=== PATIENT | female | born 1990 | race African-American/Black ===

== ENCOUNTER 2016-06-03 13:49 | Emergency (ER) | payer SELFPAY ==
[~2016-06-03] VITALS: Ht 152.4 cm; Wt 63.5 kg
[2016-06-03 13:50] VITALS: BP 143/90
--- NOTE | 2016-06-03 14:14 | PHYS DOC ---
Past Medical History Past Medical History: Asthma, Migraines Past Surgical History: Other Additional Past Surgical Histo: X 2 Alcohol Use: None Drug Use: None Adult General Chief Complaint Chief Complaint: FLU SYMPTOM [facility] HPI Patient is a 25 year old female presents the emergency room with the same time as her aunt with complaint of fever, body aches and "flulike symptoms" that began yesterday. Her aunt is here to the same time being seen as well. She denies any known exposure to influenza. She denies any history of chronic medical problems. She denies antibiotic use, hospitalization or foreign travel past 90 days. Review of Systems Review of Systems Constitutional: Denies fever or chills [] Eyes: Denies change in visual acuity, redness, or eye pain [] HENT: Denies nasal congestion or sore throat [] Respiratory: Denies cough or shortness of breath [] Cardiovascular: No additional information not addressed in HPI [] GI: Denies abdominal pain, nausea, vomiting, bloody stools or diarrhea [] : Denies dysuria or hematuria [] Musculoskeletal: Denies back pain or joint pain [] Integument: Denies rash or skin lesions [] Neurologic: Denies headache, focal weakness or sensory changes [] Endocrine: Denies polyuria or polydipsia [] Allergies Allergies Allergies Coded Allergies Type Severity Reaction Last Updated Verified No Known Drug Allergies 06/03/16 No Physical Exam Physical Exam Constitutional: Well developed, well nourished, no acute distress, non-toxic appearance. Patient is afebrile. HENT: Normocephalic, atraumatic, bilateral external ears normal, oropharynx moist, no oral exudates, scant clear rhinorrhea. Eyes: PERRLA, EOMI, conjunctiva normal, no discharge. [] Neck: Normal range of motion, no tenderness, supple, no stridor. There is no meningismus. There is bilateral anterior posterior cervical lymphadenopathy. Cardiovascular:Heart rate regular rhythm, no murmur [] Lungs & Thorax: There is no respiratory distress respiratory fatigue. Lungs are clear to auscultation bilaterally. Abdomen: Bowel sounds normal, soft, no tenderness, no masses, no pulsatile masses. [] Skin: Warm, dry, no erythema, no rash. [] Back: No tenderness, no CVA tenderness. [] Extremities: No tenderness, no cyanosis, no clubbing, ROM intact, no edema. [] Neurologic: Alert and oriented X 3, normal motor function, normal sensory function, no focal deficits noted. [] Psychologic: Affect normal, judgement normal, mood normal. [] Current Patient Data Vital Signs Vital Signs Date Time Temp Pulse Resp B/P Pulse Ox O2 Delivery O2 Flow Rate FiO2 06/03/16 13:50 98.1 77 18 98 Room Air 98.1 Lab Values Laboratory Tests Test 06/03/16 13:55 Influenza Type A Antigen Negative (NEGATIVE) Influenza Type B Antigen Negative (NEGATIVE) EKG EKG [] Radiology/Procedures Radiology/Procedures [] Course & Med Decision Making Course & Med Decision Making Pertinent Labs and Imaging studies reviewed. (See chart for details) [] Dragon Disclaimer Dragon Disclaimer This electronic medical record was generated, in whole or in part, using a voice recognition dictation system. Departure Departure Impression: Primary Impression: Viral syndrome Disposition: HOME, SELF-CARE Condition: GOOD Patient Instructions: Viral Syndrome Additional Instructions: 1. Influenza test here today is negative. 2. Ibuprofen every 8 hours for fever and body management. 3. Maintain adequate hydration by drinking 8-10, 10 ounce glasses of non- caffeinated beverage a day. 4. Follow-up with primary care doctor's office this week if there are any questions or concerns. ROBINA WILCOX Jun 03, 2016 14:14
[2016-06-03 14:40] LABS: OBC FLU VALID
== END 2016-06-03 14:55 | disposition home or self-care (01) ==
LOC: ER 13:49
DX: B34.9 Viral infection, unspecified (principal); J45.909 Unspecified asthma, uncomplicated
CPT/HCPCS: 87804; 99284